=== PATIENT | female | born 1965 ===

== ENCOUNTER 2017-03-11 13:28 | Inpatient (IN) | payer MEDICAID ==
[2017-03-11] MEDS ORDERED: Multivitamin (MVI) 10 ML, Thiamine 100 MG, Folic Acid 1 MG in Sodium Chloride 0.9% 1,00... IV ONE (13:57)
[2017-03-11 14:10] LABS: BASO # 0.1 K/uL (0.0-0.2); BASO % 1.7 % (0.0-2.0); EOS # 0.4 K/uL (0.0-0.7); HEMATOCRIT 42.4 % (34.0-47.0); LYMPH # 3.7 K/uL (1.0-4.3); MEAN CELL VOLUME 87.7 fl (81.0-99.0); MEAN CORPUSCULAR HEMOGLOBIN 30.5 pg (27.0-31.0); MEAN CORPUSCULAR HGB CONC 34.8 g/dL (33.0-37.0); MEAN PLATELET VOLUME 9.8 fl (7.2-11.7); MONO # 0.6 K/uL (0.0-0.8); MONO % 8.2 % (0.0-10.0); NEUT # 2.3 K/uL (1.8-7.0); NEUT % 32.1 % (50.0-75.0); NRBC % 0.2 % (0.0-0.0); RED CELL DISTRIBUTION WIDTH 13.4 % (11.5-14.5)
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
[2017-03-11 14:26] LABS: ALB/GLOB RATIO 1.2 (1.0-2.1); ALCOHOL SERUM 283 mg/dl (0-10); ALKALINE PHOSPHATASE 102 U/L (38-126); ALT/SGPT 79 U/L (9-52); AST/SGOT 162 U/L (14-36); BILIRUBIN,TOTAL 0.4 mg/dl (0.2-1.3); BLOOD UREA NITROGEN 4 mg/dl (7-17); CALCIUM 8.9 mg/dL (8.4-10.2); CARBON DIOXIDE 22 mmol/L (22-30); CHLORIDE 103 mmol/L (98-107); GFR AFRICAN-AMERICAN > 60; GLUCOSE,RANDOM 119 mg/dL (65-105); POTASSIUM 4.4 MMOL/L (3.6-5.0); SODIUM 140 mmol/l (132-148); TOTAL PROTEIN 8.7 G/DL (6.3-8.2)
[2017-03-11] MEDS ORDERED: Sodium Chloride 0.9% 1,000 ML IV STA (14:28)
[2017-03-11 14:59] LABS: URINE BACTERIA OCC (<OCC); URINE BILIRUBIN NEGATIVE (NEGATIVE); URINE BLOOD SMALL (NEGATIVE); URINE COLOR YELLOW (YELLOW); URINE GLUCOSE (UA) NEG (Normal); URINE KETONE NEGATIVE (NEGATIVE); URINE LEUKOCYTE ESTERASE TRACE Leu/uL (Negative); URINE PROTEIN 100 mg/dL (NEGATIVE); URINE UROBILINOGEN 0.2-1.0 mg/dL (0.2-1.0); WBC URINE 5 /hpf (0-5)
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
--- NOTE | 2017-03-11 15:12 | RAD ---
HISTORY: Fall. Technique: Single view portable semi erect @ 14:44 COMPARISON: No prior. FINDINGS: LUNGS: No active pulmonary disease. PLEURA: No significant pleural effusion identified, no pneumothorax apparent. CARDIOVASCULAR: No radiographic findings to suggest acute or significant cardiovascular disease. OSSEOUS STRUCTURES: No significant abnormalities. VISUALIZED UPPER ABDOMEN: Normal. OTHER FINDINGS: None. IMPRESSION: No active disease. Please note: No preliminary report/ innterpretation of this examination provided by emergency department personnel.
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
[2017-03-11] MEDS ORDERED: cefTRIAXone IV 1 gm in Dextros 50 ML IVPB STA (18:16)
[2017-03-11] MEDS ORDERED: cefTRIAXone IV 1 gm in Dextros 50 ML IVPB ONE (18:41)
[2017-03-11 18:42] LABS: VENOUS BLOOD GAS BASE EXCESS 0.7 mmol/L (0.0-2.0); VENOUS BLOOD GAS PCO2 40 mmHg (40-60); VENOUS BLOOD PH 7.41 (7.32-7.43)
[2017-03-12] MEDS: guaiFENesin DM 200 mg-20 mg/10 ml UD PO PRN (00:40)
[2017-03-12 07:19] LABS: ALB/GLOB RATIO 1.2 (1.0-2.1); ALKALINE PHOSPHATASE 81 U/L (38-126); ALT/SGPT 62 U/L (9-52); AST/SGOT 111 U/L (14-36); BILIRUBIN,TOTAL 0.7 mg/dl (0.2-1.3); BLOOD UREA NITROGEN 4 mg/dl (7-17); CALCIUM 8.1 mg/dL (8.4-10.2); CARBON DIOXIDE 27 mmol/L (22-30); CHLORIDE 103 mmol/L (98-107); CHOLESTEROL 240 mg/dL (0-199); GFR AFRICAN-AMERICAN > 60; GLUCOSE,RANDOM 85 mg/dL (65-105); HEMATOCRIT 36.8 % (34.0-47.0); MEAN CELL VOLUME 88.1 fl (81.0-99.0); MEAN CORPUSCULAR HEMOGLOBIN 30.9 pg (27.0-31.0); POTASSIUM 3.5 MMOL/L (3.6-5.0); RED CELL DISTRIBUTION WIDTH 13.5 % (11.5-14.5); SODIUM 138 mmol/l (132-148); TOTAL PROTEIN 7.1 G/DL (6.3-8.2); WHITE BLOOD COUNT 6.1 K/uL (4.8-10.8)
[2017-03-12 07:38] LABS: T4 5.97 ug/dl (5.5-11.0)
[2017-03-12 07:49] LABS: THYROID STIMULATING HORMONE 1.61 mIU/ML (0.46-4.68)
[2017-03-12] MEDS ORDERED: Enoxaparin 40 mg Syringe SC SCH (09:00)
--- NOTE | 2017-03-12 11:55 | CARD ---
APPROVED REPORT EKG Measurement Heart [id number] <Conclusion> Normal sinus rhythm Normal ECG
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
[2017-03-13 10:34] LABS: HEMATOCRIT 40.6 % (34.0-47.0); MEAN CELL VOLUME 88.6 fl (81.0-99.0); MEAN CORPUSCULAR HEMOGLOBIN 30.8 pg (27.0-31.0); MEAN CORPUSCULAR HGB CONC 34.7 g/dL (33.0-37.0); RED CELL DISTRIBUTION WIDTH 13.4 % (11.5-14.5)
[2017-03-13 10:50] LABS: ALKALINE PHOSPHATASE 92 U/L (38-126); ALT/SGPT 59 U/L (9-52); AST/SGOT 116 U/L (14-36); BILIRUBIN,TOTAL 1.1 mg/dl (0.2-1.3); BLOOD UREA NITROGEN 3 mg/dl (7-17); CARBON DIOXIDE 19 mmol/L (22-30); CHLORIDE 108 mmol/L (98-107); GFR AFRICAN-AMERICAN > 60; GLUCOSE,RANDOM 100 mg/dL (65-105); SODIUM 139 mmol/l (132-148); TOTAL PROTEIN 8.4 G/DL (6.3-8.2)
[2017-03-13] MEDS: guaiFENesin DM 200 mg-20 mg/10 ml UD PO PRN (11:02)
--- NOTE | 2017-03-13 15:41 | PN ---
DATE: 03/13/2017 SUBJECTIVE: The patient seen and examined. Interim events noted. Patient remains in Progressive Care Unit on telemetry monitoring. Remains confused, disoriented, agitated. Wanted to smoke. No chest pain or shortness of breath, although patient is not a historian at this time. Agitation is reported per nursing staff, on one-to-one observation. PHYSICAL EXAMINATION: GENERAL: The patient is in no acute distress. VITAL SIGNS: Stable. HEART: S1 and S2, normal and regular. LUNGS: Good bilateral air exchange. ABDOMEN: Soft and nontender. EXTREMITIES: No calf swelling. No tenderness. No acute ischemia. CENTRAL NERVOUS SYSTEM: Essentially unchanged. There is no sign of any acute gross focal motor or sensory neurological deficit, although the patient remains very confused and seems to be all symptoms. DIAGNOSTIC DATA: Available diagnostic data reviewed. Telemetry monitoring does not reveal significant arrhythmias. ASSESSMENT AND PLAN: Overall, the patient's general medical condition is hemodynamically stable . Plan as ordered. Antwon Colon MD
[2017-03-14 06:21] LABS: HEMATOCRIT 40.8 % (34.0-47.0); MEAN CORPUSCULAR HEMOGLOBIN 30.7 pg (27.0-31.0); MEAN CORPUSCULAR HGB CONC 34.5 g/dL (33.0-37.0); RED CELL DISTRIBUTION WIDTH 13.4 % (11.5-14.5); WHITE BLOOD COUNT 8.4 K/uL (4.8-10.8)
[2017-03-14 06:30] LABS: ALB/GLOB RATIO 1.2 (1.0-2.1); ALKALINE PHOSPHATASE 118 U/L (38-126); ALT/SGPT 62 U/L (9-52); AST/SGOT 90 U/L (14-36); BLOOD UREA NITROGEN 6 mg/dl (7-17); CALCIUM 9.4 mg/dL (8.4-10.2); CARBON DIOXIDE 22 mmol/L (22-30); CHLORIDE 107 mmol/L (98-107); GFR AFRICAN-AMERICAN > 60; GLUCOSE,RANDOM 142 mg/dL (65-105); POTASSIUM 3.6 MMOL/L (3.6-5.0); SODIUM 141 mmol/l (132-148); TOTAL PROTEIN 8.5 G/DL (6.3-8.2)
--- NOTE | 2017-03-14 08:52 | PN ---
DATE: 03/14/2017 SUBJECTIVE: The patient is seen and examined. Interim events noted. Consults noted and appreciated. The patient remains confused, disoriented, requiring one-to-one observation. PHYSICAL EXAMINATION: GENERAL: The patient is in no acute distress. VITAL SIGNS: Stable. HEART: S1 and S2, normal and regular. LUNGS: Good bilateral air exchange. ABDOMEN: Soft, nontender. EXTREMITIES: No edema. No calf swelling. No tenderness. No acute ischemia. CENTRAL NERVOUS SYSTEM: Essentially unchanged. DIAGNOSTIC DATA: Available diagnostic data reviewed. Telemetry monitoring does not reveal significant arrhythmias. ASSESSMENT AND PLAN: Overall, the patient is feeling withdrawn, remains confused, disoriented. Plan as ordered. Antwon Colon MD
--- NOTE | 2017-03-14 12:26 | CP.PCM.CON ---
History of Present Illness - History of Present Illness History of Present Illness: Psychiatry Consult Customer Relationship Specialist attempted to meet with patient but she was lethargic and unable to engage in interview. Will attempt to evaluate the patient when she is more alert. Past Patient History - Past Medical History & Family History Past Medical History?: Yes - Past Social History Smoking Status: Current Some Days Smoker - CARDIAC Hx Cardiac Disorders: Yes Hx Hypertension: Yes - PULMONARY Hx Respiratory Disorders: No - NEUROLOGICAL Hx Neurological Disorder: No - HEENT Hx HEENT Problems: No - RENAL Hx Chronic Kidney Disease: No - ENDOCRINE/METABOLIC Hx Endocrine Disorders: No - HEMATOLOGICAL/ONCOLOGICAL Hx Blood Disorders: No Hx AIDS: No Hx Human Immunodeficiency Virus (HIV): No - INTEGUMENTARY Hx Dermatological Problems: No - MUSCULOSKELETAL/RHEUMATOLOGICAL Hx Musculoskeletal Disorders: No Hx Falls: No - GASTROINTESTINAL Hx Gastrointestinal Disorders: No - GENITOURINARY/GYNECOLOGICAL Hx Genitourinary Disorders: No - PSYCHIATRIC Hx Psychophysiologic Disorder: Yes Hx Substance Use: Yes (Alcohol) - SURGICAL HISTORY Hx Surgeries: No - ANESTHESIA Hx Anesthesia: No Hx Anesthesia Reactions: No Hx Malignant Hyperthermia: No Meds Allergies/Adverse Reactions: Allergies Allergy/AdvReac Type Severity Reaction Status Date / Time Unobtainable Allergy Verified 03/11/17 13:33 - Medications Medications: Current Medications Chlordiazepoxide (Librium) 25 mg PO Q6 [facility] Guaifenesin/Dextromethorphan (Robitussin Dm) 10 ml PO Q6 PRN PRN Reason: Cough Last Admin: 03/13/17 11:02 Dose: 10 ml Lorazepam (Ativan) 1 mg IVP Q3 PRN PRN Reason: Agitation Last Admin: 03/14/17 10:40 Dose: 1 mg Losartan Potassium (Cozaar) 25 mg PO DAILY [facility] Last Admin: 03/14/17 10:40 Dose: 25 mg Nicotine (Nicoderm Cq) 1 patch TD DAILY [facility] Last Admin: 03/14/17 10:41 Dose: 1 patch Results - Vital Signs Recent Vital Signs: Last Vital Signs Temp 97.6 F 03/14/17 08:44 Pulse 81 03/14/17 10:40 Resp 16 03/14/17 08:44 BP 122/80 03/14/17 10:40 Pulse Ox 99 03/14/17 08:44 - Labs Result Diagrams: 03/14/17 06:00 03/14/17 06:00 Labs: Laboratory Results - last 24 hr 03/14/17 03/14/17 06:00 06:00 WBC 8.4 RBC 4.58 Hgb 14.1 Hct 40.8 MCV 89.0 MCH 30.7 MCHC 34.5 RDW 13.4 Plt Count 45 L Sodium 141 Potassium 3.6 Chloride 107 Carbon Dioxide 22 Anion Gap 16 BUN 6 L Creatinine 0.5 L Est GFR ( Amer) > 60 Est GFR (Non-Af Amer) > 60 Random Glucose 142 H Calcium 9.4 Total Bilirubin 1.0 AST 90 H D ALT 62 H Alkaline Phosphatase 118 Total Protein 8.5 H Albumin 4.7 Globulin 3.8 Albumin/Globulin Ratio 1.2
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
[2017-03-15 08:32] LABS: ALB/GLOB RATIO 1.2 (1.0-2.1); ALKALINE PHOSPHATASE 96 U/L (38-126); ALT/SGPT 69 U/L (9-52); AST/SGOT 89 U/L (14-36); BILIRUBIN,TOTAL 0.8 mg/dl (0.2-1.3); BLOOD UREA NITROGEN 7 mg/dl (7-17); CALCIUM 9.4 mg/dL (8.4-10.2); CARBON DIOXIDE 25 mmol/L (22-30); CHLORIDE 106 mmol/L (98-107); GFR AFRICAN-AMERICAN > 60; GLUCOSE,RANDOM 98 mg/dL (65-105); POTASSIUM 3.5 MMOL/L (3.6-5.0); SODIUM 138 mmol/l (132-148); TOTAL PROTEIN 7.7 G/DL (6.3-8.2)
[2017-03-15] MEDS ORDERED: Potassium Chloride 20 mEq ER Tab PO ONE (08:55)
[2017-03-15] MEDS: Petrolatum UD PAK TOP SCH ×4 (09:08→21:17)
[2017-03-15] MEDS: guaiFENesin DM 200 mg-20 mg/10 ml UD PO PRN (09:56)
[2017-03-15 10:25] LABS: HEMATOCRIT 39.7 % (34.0-47.0); MEAN CORPUSCULAR HEMOGLOBIN 30.8 pg (27.0-31.0); MEAN CORPUSCULAR HGB CONC 35.8 g/dL (33.0-37.0); RED CELL DISTRIBUTION WIDTH 13.3 % (11.5-14.5); WHITE BLOOD COUNT 6.1 K/uL (4.8-10.8)
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
--- NOTE | 2017-03-15 12:19 | CP.PCM.PN ---
Subjective - Date & Time of Evaluation Date of Evaluation: 03/15/17 Time of Evaluation: 12:18 - Subjective Subjective: Pt's platelet count has gone up to 65K with abstinence from alcohol. Will sign off te case. Objective - Vital Signs/Intake and Output Vital Signs (last 24 hours): Temp Pulse Resp BP Pulse Ox 97.5 F L 107 H 18 102/63 100 03/15/17 12:00 03/15/17 12:00 03/15/17 12:00 03/15/17 12:00 03/15/17 12:00 Intake and Output: 03/15/17 03/15/17 06:59 18:59 Intake Total 1000 Balance 1000 - Medications Medications: Current Medications Chlordiazepoxide (Librium) 25 mg PO Q6 [facility] Last Admin: 03/15/17 09:55 Dose: 25 mg Emollient Ointment (Vaseline Oint) 1 pkt TOP QID [facility] Folic Acid (Folic Acid) 1 mg PO DAILY [facility] Last Admin: 03/15/17 09:55 Dose: 1 mg Guaifenesin/Dextromethorphan (Robitussin Dm) 10 ml PO Q6 PRN PRN Reason: Cough Last Admin: 03/15/17 09:56 Dose: 10 ml Lorazepam (Ativan) 1 mg IVP Q3 PRN PRN Reason: Agitation Last Admin: 03/15/17 11:05 Dose: 1 mg Losartan Potassium (Cozaar) 25 mg PO DAILY [facility] Last Admin: 03/15/17 09:54 Dose: 25 mg Nicotine (Nicoderm Cq) 1 patch TD DAILY [facility] Last Admin: 03/15/17 09:56 Dose: 1 patch Thiamine HCl (Vitamin B1 Tab) 100 mg PO DAILY [facility] Last Admin: 03/15/17 09:55 Dose: 100 mg - Labs Labs: 03/15/17 09:30 03/15/17 07:50
[2017-03-16] MEDS: Petrolatum UD PAK TOP SCH ×4 (09:32→22:27)
[2017-03-16] MEDS: guaiFENesin DM 200 mg-20 mg/10 ml UD PO PRN (09:34)
--- NOTE | 2017-03-16 11:07 | PN ---
DATE: 03/15/2017 SUBJECTIVE: The patient is seen and examined. Interim events noted. The patient looks little better. , but still very jittery and unsteady. No chest pain. No shortness of breath. PHYSICAL EXAMINATION: GENERAL: The patient is in no acute distress. VITAL SIGNS: Stable. HEART: S1 and S2, normal and regular. LUNGS: Good bilateral air exchange. ABDOMEN: Soft and nontender. No organomegaly. No fluid. Bowel sounds are present. EXTREMITIES: No edema. No calf swelling. No tenderness. No acute ischemia. CENTRAL NERVOUS SYSTEM: Essentially unchanged. DIAGNOSTIC DATA: Available diagnostic data reviewed. Telemetry monitoring does not reveal significant arrhythmia. ASSESSMENT AND PLAN: Overall, the patient's general medical condition is stable. Plan as ordered. Antwon Colon MD
--- NOTE | 2017-03-16 12:16 | PN ---
DATE: 03/16/2017 SUBJECTIVE: Patient seen and examined. Interim events noted. Consults noted and appreciated. Psychiatric followup and interventions noted and appreciated. Patient feels better. He complains of pains in joints, mainly to right wrist, but no chest pain, no shortness of breath. PHYSICAL EXAMINATION: GENERAL: Patient is in no acute distress. VITAL SIGNS: Stable. Patient is still very jittery. HEART: S1 and S2, normal and regular. LUNGS: Good bilateral air entry. ABDOMEN: Soft and nontender. EXTREMITIES: No edema. No calf swelling. No tenderness. No acute ischemia. CENTRAL NERVOUS SYSTEM: Essentially unchanged. DIAGNOSTIC DATA: Available diagnostic data reviewed. Telemetry monitoring does not reveal significant arrhythmias. Patient is still very jittery and having withdrawal, also remains on one-to-one observation. ASSESSMENT AND PLAN: Overall clinically, the patient seems to have improved. Plan as ordered. Antwon Colon MD [facility]
[2017-03-17 05:46] VITALS: RESP 18
[2017-03-17] MEDS: Petrolatum UD PAK TOP SCH ×2 (09:17→17:23)
[2017-03-17 12:22] VITALS: O2SAT 99
--- NOTE | 2017-03-17 13:43 | PN ---
DATE: 03/17/2017 SUBJECTIVE: Patient seen and examined. Interim events noted. Patient remains in Progressive Care Unit with one-to-one observation and monitoring. Patient is not able to provide informative history or review of systems. Denies any specific complaints. No chest pain. No shortness of breath. PHYSICAL EXAMINATION: GENERAL: Patient is in no acute distress. VITAL SIGNS: . HEART: S1 and S2, normal and regular. LUNGS: Good bilateral air exchange. ABDOMEN: Soft, nontender. EXTREMITIES: No edema. No calf swelling. No tenderness. No acute ischemia. CENTRAL NERVOUS SYSTEM: Essentially unchanged. DIAGNOSTIC DATA: Available diagnostic data reviewed. Telemetry monitoring does not reveal significant arrhythmias. ASSESSMENT AND PLAN: Overall, patient is hemodynamically stable, although still not 100% mentally. Plan as ordered. Antwon Colon MD
[2017-03-17 15:46] VITALS: BP 92/65; PULSE 86; TEMP 97.7
== END 2017-03-17 18:00 | disposition home or self-care (01) | DRG 750 ==
LOC: H.ER 13:28 → OBSVTOIN 19:06 → H.ERHOLD 19:06 → H.TEL 20:38
PROVIDERS: ADMIT Internal Medicine; ATTEND Internal Medicine
DX: F10.231 Alcohol dependence with withdrawal delirium (principal); K70.30 Alcoholic cirrhosis of liver without ascites; D69.59 Other secondary thrombocytopenia; N39.0 Urinary tract infection, site not specified; I10 Essential (primary) hypertension; F10.229 Alcohol dependence with intoxication, unspecified; D73.1 Hypersplenism; Y90.8 Blood alcohol level of 240 mg/100 ml or more; K52.9 Noninfective gastroenteritis and colitis, unspecified; F17.210 Nicotine dependence, cigarettes, uncomplicated

== ENCOUNTER 2017-12-11 01:33 | Emergency (ER) | payer MEDICAID ==
[2017-12-11 01:43] VITALS: BMI 22.4
[2017-12-11] MEDS ORDERED: Multivitamin (MVI) 10 ML, Thiamine 100 MG, Folic Acid 1 MG in Dextrose 5%/0.45% NS 1,00... IV ONE (03:15)
[2017-12-11 03:42] LABS: BASO # 0.1 K/uL (0.0-0.2); BASO % 0.8 % (0.0-2.0); EOS # 0.4 K/uL (0.0-0.7); HEMOGLOBIN 14.1 g/dL (12.0-16.0); LYMPH # 3.8 K/uL (1.0-4.3); LYMPH % 42.9 % (20.0-40.0); MEAN CELL VOLUME 86.6 fl (81.0-99.0); MEAN CORPUSCULAR HEMOGLOBIN 31.2 pg (27.0-31.0); MEAN PLATELET VOLUME 9.5 fl (7.2-11.7); MONO # 0.7 K/uL (0.0-0.8); NEUT # 3.9 K/uL (1.8-7.0); NEUT % 44.3 % (50.0-75.0); NRBC % 0.2 % (0.0-0.0); RBC 4.52 Mil/uL (3.80-5.20); RED CELL DISTRIBUTION WIDTH 14.1 % (11.5-14.5); WHITE BLOOD COUNT 8.9 K/uL (4.8-10.8)
[2017-12-11 03:55] LABS: ALB/GLOB RATIO 1.2 (1.0-2.1); ALBUMIN 4.4 g/dL (3.5-5.0); ALT/SGPT 63 U/L (9-52); AST/SGOT 123 U/L (14-36); BLOOD UREA NITROGEN 2 mg/dl (7-17); CALCIUM 8.9 mg/dL (8.4-10.2); GFR AFRICAN-AMERICAN > 60; GFR NON-AFRICAN AMERICAN > 60; LIPASE 321 U/L (23-300)
[2017-12-11 04:51] LABS: URINE BILIRUBIN NEGATIVE (NEGATIVE); URINE BLOOD NEGATIVE (NEGATIVE); URINE CLARITY CLEAR (Clear); URINE COLOR COLORLESS (YELLOW); URINE GLUCOSE (UA) 150 mg/dL (Normal); URINE LEUKOCYTE ESTERASE NEG Leu/uL (Negative); URINE PROTEIN NEGATIVE (NEGATIVE); URINE UROBILINOGEN 0.2-1.0 mg/dL (0.2-1.0)
[2017-12-11 05:30] LABS: BARBITURATES, UR NEGATIVE (NEGATIVE); BENZODIAZEPINES, UR NEGATIVE (NEGATIVE); OPIATES, UR NEGATIVE (NEGATIVE); PHENCYCLIDINE, UR NEGATIVE (NEGATIVE)
[2017-12-11 05:55] VITALS: RESP 16
--- NOTE | 2017-12-11 05:59 | ED PDOC ---
HPI: Psych/Substance Abuse Time Seen by Provider: 12/11/17 02:31 Chief Complaint (Nursing): Alcohol Ingestion Chief Complaint (Provider): Alcohol Ingestion History Per: Patient History/Exam Limitations: no limitations Onset/Duration Of Symptoms: Days Current Symptoms Are (Timing): Still Present Modifying Factor(s): Alcohol Additional Complaint(s): 52 y/o male presents to the ED for alcohol intoxication. Patient states that for a period of time from January 2017 onto November 23 she has been sober. Then since November 23 she has been drinking daily. Patient states she has been drinking every day and not eating as much. Son found her earlier today. Patient reports her last drink was at 11 PM last night. Patient is also complaining of epigastric discomfort and nausea. Otherwise: (-) other complaints, (-) depressed , (-) suicidal ideation, (-) chest pain, (-) vomiting, (-) back pain, (-) homicidal ideation. Past Medical History Reviewed: Historical Data, Nursing Documentation, Vital Signs Vital Signs: Last Vital Signs Temp 97 F L 12/11/17 01:44 Pulse 105 H 12/11/17 01:44 Resp 18 12/11/17 01:44 BP 144/93 H 12/11/17 01:44 Pulse Ox 100 12/11/17 01:44 - Medical History PMH: HTN Denies: Diabetes, Hepatitis, HIV, Chronic Kidney Disease, Seizures, Sexually Transmitted Disease - Surgical History Surgical History: Cholecystectomy, (x 1) - Family History Family History: States: Unknown Family Hx - Immunization History Hx Tetanus Toxoid Vaccination: No Hx Influenza Vaccination: No Hx Pneumococcal Vaccination: No - Home Medications Home Medications: Ambulatory Orders Medication Instructions Recorded Acetaminophen with Codeine 1 tab PO Q6 PRN #10 tab 01/03/14 [Tylenol with Codeine No. 3 300 mg-30 mg] Oxycodone HCl/Acetaminophen 1 tab PO Q6H PRN #15 tab 04/27/15 [Percocet 325 mg-5 mg] Clindamycin [Cleocin] 300 mg PO TID #21 cap 09/03/15 oxyCODONE/Acetaminophen [Percocet 1 ea PO Q6H PRN #10 tab 09/03/15 5/325 mg Tab] Ibuprofen [Motrin] 600 mg PO Q8 PRN #21 tab 10/18/16 Losartan [Cozaar] 25 mg PO DAILY 03/11/17 Folic Acid 1 mg PO DAILY #30 tab 03/17/17 Thiamine [Vitamin B1 Tab] 100 mg PO DAILY #30 tab 03/17/17 chlordiazePOXIDE [Librium] 25 mg PO Q8 2 Days #15 cap 03/17/17 Famotidine [Pepcid] 40 mg PO DAILY #20 tablet 12/11/17 Ondansetron ODT [Zofran ODT] 4 mg PO DAILY PRN #20 odt 12/11/17 - Allergies Allergies/Adverse Reactions: Allergies Allergy/AdvReac Type Severity Reaction Status Date / Time Unobtainable Allergy Verified 03/11/17 13:33 Review of Systems ROS Statement: Except As Marked, All Systems Reviewed And Found Negative Psych: Positive for: Other (EtOH intoxication) Physical Exam - Reviewed Nursing Documentation Reviewed: Yes Vital Signs Reviewed: Yes - Physical Exam Neurologic/Psych: Positive for: Alert Comments: GENERAL APPEARANCE: Patient is awake, alert, oriented x 3, in no acute distress. SKIN: Warm, dry; (-) cyanosis HEAD: (-) scalp swelling, (-) scalp tenderness. EYES: (-) conjunctival pallor, (-) scleral icterus, (-) nystagmus, (+) dry mucus membranes. ENMT: Mucous membranes moist. Airway patent: (-) stridor. NECK: (-) tenderness, (-) stiffness, (-) lymphadenopathy. HEART AND CARDIOVASCULAR: (-) irregularity; (-) murmur, (-) gallop. CHEST AND RESPIRATORY: (-) rales, (-) rhonchi, (-) wheezes; breath sounds equal. ABDOMEN: Soft, (-) distention, (+) mild epigastric tenderness, (-) guarding. NEURO AND PSYCH: Mental status as above. Affect: normal. job coach/job developer: Intact. Pupils equal and reactive; EOMI; (-) facial asymmetry; tongue and uvula midline. Strength symmetric. Gait steady. - Laboratory Results Result Diagrams: 12/11/17 03:35 12/11/17 03:35 - ECG O2 Sat by Pulse Oximetry: 100 (RA) Pulse Ox Interpretation: Normal Medical Decision Making Medical Decision Making: Plan : - Labs - IV - Pepcid IV - Zofran IV - Banana bag IV - UDS - UA Labs reviewed : Alcohol 275, rest of the labs wnl. On re-evaluation, patient reports improvement of symptoms, denies any abdominal pain or nausea. On exam, patient remains AAOx3, in no acute distress. Lungs clear to auscultation, cardiac RRR, abdomen soft, non-tender, repeat neuro exam shows no focal findings, speaking in full sentences, no slurred speech, no tremors, ambulating with a steady gait. Diagnostic results d/w the patient in great detail. Based on history, exam and diagnostic results, plan will be for outpatient follow up. Patient instructed to follow-up with pmd or referral provided in 1-2 days without fail. Return to the emergency room at any time for any new or worsening symptoms. Patient states she fully agrees with and understands discharge instructions. States that she agrees with the plan and disposition. Verbalized and repeated discharge instructions and plan. I have given the patient opportunity to ask any additional questions. Scribe Attestation: Documented by Shakeel Yates acting as a scribe for Sweta Arguelles PA-C. Provider Scribe Attestation: All medical record entries made by the Scribe were at my direction and personally dictated by me. I have reviewed the chart and agree that the record accurately reflects my personal performance of the history, physical exam, medical decision making, and the department course for this patient. I have also personally directed, reviewed, and agree with the discharge instructions and disposition. Disposition - Clinical Impression Clinical Impression: Alcohol abuse with intoxication, Alcoholic gastritis - Patient ED Disposition Is Patient to be Admitted: No Counseled Patient/Family Regarding: Studies Performed, Diagnosis, Need For Followup, Rx Given - Disposition Referrals: [facility] [Outside] Houston Emerson MD [Staff Provider] - Disposition: Routine/Home Disposition Time: 06:00 Condition: STABLE Additional Instructions: Thank you for letting us take care of you today. You were treated for alcohol intoxication/abuse. The emergency medical care you received today was directed towards the acute presenting symptoms. If you were prescribed any medication, please fill it and give as directed. It may take several days for your symptoms to resolve. Return to the Emergency Department at any time if symptoms worsen, do not improve, or if any other problems arise. Please contact your doctor in 2 days for re-evaluation and follow up / or call one of the physicians/clinics you have been referred to that are listed on the Patient Visit Information form that is included in your discharge packet. Bring any paperwork you were given at discharge with you along with any medications to your follow up visit. Our treatment cannot replace ongoing medical care by a primary care provider (PCP) outside of the emergency department. Thank you for allowing the [facility] team to be part of your care today. Prescriptions: Famotidine [Pepcid] 40 mg PO DAILY #20 tablet Ondansetron ODT [Zofran ODT] 4 mg PO DAILY PRN #20 odt PRN Reason: Nausea/Vomiting Instructions: Gastritis (DC), Alcohol Abuse and Alcoholism (DC) Forms: [employer] (Nepali) Print Language: MOROCC[place] - PA / SPECIALIST FIELD ENGINEER / Resident Statement MD/DO has reviewed & agrees with the documentation as recorded.
[2017-12-11 12:33] VITALS: BP 110/60; PULSE 88; TEMP 97.8
[2017-12-12 00:57] VITALS: O2SAT 100
== END 2017-12-11 12:31 | disposition home or self-care (01) ==
LOC: H.ER 01:33
DX: F10.129 Alcohol abuse with intoxication, unspecified (principal); K29.20 Alcoholic gastritis without bleeding; I10 Essential (primary) hypertension
CPT/HCPCS: 80053; 80320; 80324; 80345; 80346; 80349; 80353; 80358; 80361; 81003; 83690; 83992; 85025; 96365; 96366; 96375; 99283; J2405; J3411; J7042

== ENCOUNTER 2018-02-14 07:56 | Emergency (ER) | payer MEDICAID ==
[2018-02-14 07:56] VITALS: BMI 22.4
[2018-02-14 08:03] VITALS: PULSE 82; TEMP 98.2; O2SAT 100
[2018-02-14 08:19] VITALS: BP 108/71; RESP 16
[2018-02-14] MEDS ORDERED: Sodium Chloride 0.9% 1,000 ML IV STA (08:20)
[2018-02-14 09:04] LABS: BASO # 0.1 K/uL (0.0-0.2); BASO % 1.3 % (0.0-2.0); EOS # 0.5 K/uL (0.0-0.7); EOS % 4.8 % (0.0-4.0); HEMOGLOBIN 14.3 g/dL (12.0-16.0); LYMPH # 3.5 K/uL (1.0-4.3); LYMPH % 34.4 % (20.0-40.0); MEAN CELL VOLUME 89.2 fl (81.0-99.0); MEAN CORPUSCULAR HEMOGLOBIN 31.8 pg (27.0-31.0); MEAN CORPUSCULAR HGB CONC 35.7 g/dL (33.0-37.0); MEAN PLATELET VOLUME 11.2 fl (7.2-11.7); MONO # 0.8 K/uL (0.0-0.8); MONO % 7.5 % (0.0-10.0); NEUT # 5.3 K/uL (1.8-7.0); NRBC % 0.1 % (0.0-0.0); RBC 4.5 Mil/uL (3.80-5.20); RED CELL DISTRIBUTION WIDTH 13.2 % (11.5-14.5); WHITE BLOOD COUNT 10.3 K/uL (4.8-10.8)
[2018-02-14 09:07] LABS: ALB/GLOB RATIO 1.1 (1.0-2.1); ALBUMIN 4.1 g/dL (3.5-5.0); BLOOD UREA NITROGEN 13 mg/dl (7-17); CALCIUM 9.3 mg/dL (8.4-10.2); GFR NON-AFRICAN AMERICAN > 60
[2018-02-14 09:08] LABS: ALT/SGPT 14 U/L (9-52); AST/SGOT 38 U/L (14-36)
[2018-02-14] MEDS ORDERED: Sodium Chloride 0.9% 100 ML ONE (13:03)
[2018-02-14] MEDS ORDERED: Iodixanol 320 MG/ML 100 ML BOTTLE IV ONE (13:03)
--- NOTE | 2018-02-14 14:07 | CT ---
Date of service: 02/14/2018 PROCEDURE: CT HEAD WITHOUT CONTRAST. HISTORY: Evaluate for intracranial hemorrhage COMPARISON: CT head dated 03/11/2017 TECHNIQUE: Axial computed tomography images were obtained through the head/brain without intravenous contrast. Radiation dose: Total exam DLP = 703.0 mGy-cm. This CT exam was performed using one or more of the following dose reduction techniques: Automated exposure control, adjustment of the mA and/or kV according to patient size, and/or use of iterative reconstruction technique. FINDINGS: HEMORRHAGE: No intracranial hemorrhage. BRAIN: No mass effect or edema. Mild atrophy. Mild chronic microvascular ischemic changes. VENTRICLES: Mildly prominent in excess of cerebral atrophy. CALVARIUM: Unremarkable. PARANASAL SINUSES: Bilateral maxillary and ethmoid sinus secretions. MASTOID AIR CELLS: Unremarkable as visualized. No inflammatory changes. OTHER FINDINGS: Stable bilobed peripherally calcified 1.8 x 1.1 cm aneurysm in the left ICA terminus versus proximal M1 segment. IMPRESSION: No acute intracranial pathology. Sinus disease as described above. Mildly prominent ventricles in excess of mild cerebral atrophy which may represent a component of underlying communicating hydrocephalus. Stable peripherally calcified bilobed left ICA terminus versus proximal M1 segment aneurysm.
--- NOTE | 2018-02-14 14:26 | CT ---
PROCEDURE: CTA HEAD AND NECK WITH CONTRAST HISTORY: R/O ANEURYSM COMPARISON: None available. TECHNIQUE: Initial noncontrast head CT was performed. Subsequently, CT angiogram of the head and neck were performed after the intravenous administration of 80 mL of Omnipaque 350. Contiguous 1.5mm thick images were obtained in the axial plane of the neck. 2-D coronal and sagittal MPR images were obtained. Imaging postprocessing was performed with 3-D images also obtained. A delayed contrast head CT was also obtained. This CT exam was performed using one or more of the following dose reduction techniques: Automated exposure control, adjustment of the mA and/or kV according to patient size, and/or use of iterative reconstruction technique. Contrast dose: 99 cc Visipaque 320 Radiation dose: Total exam DLP = 412.24 mGy-cm. FINDINGS: HEAD: Right: The intracranial internal carotid artery, and anterior and middle cerebral arteries are widely patent. Left: The intracranial internal carotid artery, and anterior and middle cerebral arteries are widely patent. There is a 1.6 x 0.6 cm peripherally calcified bilobed aneurysm in the left supraclinoid ICA directed anterolaterally. Posterior circulation: The visualized intracranial vertebral arteries, basilar artery and posterior cerebral arteries are widely patent. There is no endoluminal filling defect to suggest thrombus. NECK: There is a three vessel aortic arch. There is no stenosis at the origins of the great vessels at the level of the aortic arch. Right Carotid: On the right, the common carotid, internal carotid and external carotid arteries are widely patent. There is no hemodynamically significant stenosis in the internal carotid artery by NASCET criteria. Left Carotid: On the left, the common carotid, internal carotid and external carotid arteries are widely patent. There is no hemodynamically significant stenosis in the internal carotid artery by NASCET criteria. The vertebral arteries are widely patent. The right vertebral artery is hypoplastic, an anatomic variant. The visualized soft tissues of the neck are normal. The visualized brain and cervical spine are within normal limits. There are cystic changes in the visualized upper lobes. IMPRESSION: 1. 1.6 x 0.6 cm bilobed saccular aneurysm in the left supraclinoid IC directed anterior or laterally. 2. No evidence of endoluminal thrombus,occlusion or definite significant stenosis in the intracranial arteries. 3. No evidence of hemodynamically significant stenosis in the internal carotid arteries. 4. Patent bilateral vertebral arteries.
--- NOTE | 2018-02-14 15:09 | ED PDOC ---
HPI: Headache Time Seen by Provider: 02/14/18 08:19 Chief Complaint (Nursing): Headache Chief Complaint (Provider): headache nausea History Per: Patient, Transition Coach (Barber from [facility]) Current Symptoms Are (Timing): Still Present Severity: Mild Quality: Dull Associated Symptoms: Nausea. denies: Photophobia, Blurred Vision, Vomiting, Extremity Weakness Additional History Per: Prior Records Past Medical History Reviewed: Historical Data, Nursing Documentation, Vital Signs Vital Signs: Last Vital Signs Temp 98.2 F 02/14/18 08:05 Pulse 82 02/14/18 08:05 Resp 16 02/14/18 08:05 BP 108/71 02/14/18 08:05 Pulse Ox 100 02/14/18 08:05 - Medical History PMH: HTN Denies: Diabetes, Hepatitis, HIV, Chronic Kidney Disease, Seizures, Sexually Transmitted Disease Other PMH: prior etoh abuse, currently does not drink - Surgical History Surgical History: Cholecystectomy, (x 1) - Family History Family History: States: Unknown Family Hx - Social History Current smoker - smoking cessation education provided: No Alcohol: None - Immunization History Hx Tetanus Toxoid Vaccination: No Hx Influenza Vaccination: No Hx Pneumococcal Vaccination: No - Home Medications Home Medications: Ambulatory Orders Medication Instructions Recorded Acetaminophen with Codeine 1 tab PO Q6 PRN #10 tab 01/03/14 [Tylenol with Codeine No. 3 300 mg-30 mg] Oxycodone HCl/Acetaminophen 1 tab PO Q6H PRN #15 tab 04/27/15 [Percocet 325 mg-5 mg] Clindamycin [Cleocin] 300 mg PO TID #21 cap 09/03/15 oxyCODONE/Acetaminophen [Percocet 1 ea PO Q6H PRN #10 tab 09/03/15 5/325 mg Tab] Ibuprofen [Motrin] 600 mg PO Q8 PRN #21 tab 10/18/16 Losartan [Cozaar] 25 mg PO DAILY 03/11/17 Folic Acid 1 mg PO DAILY #30 tab 03/17/17 Thiamine [Vitamin B1 Tab] 100 mg PO DAILY #30 tab 03/17/17 chlordiazePOXIDE [Librium] 25 mg PO Q8 2 Days #15 cap 03/17/17 Famotidine [Pepcid] 40 mg PO DAILY #20 tablet 12/11/17 Ondansetron ODT [Zofran ODT] 4 mg PO DAILY PRN #20 odt 12/11/17 - Allergies Allergies/Adverse Reactions: Allergies Allergy/AdvReac Type Severity Reaction Status Date / Time Unobtainable Allergy Verified 03/11/17 13:33 Review of Systems Constitutional: Negative for: Fever, Sweats Cardiovascular: Negative for: Chest Pain, Palpitations Respiratory: Negative for: Shortness of Breath Gastrointestinal: Positive for: Nausea. Negative for: Vomiting, Abdominal Pain Genitourinary Female: Negative for: Dysuria Musculoskeletal: Negative for: Neck Pain Neurological: Positive for: Headache. Negative for: Weakness, Numbness, Incoordination, Change in Speech, Confusion, Seizures, Altered Mental Status, Dizziness Psych: Negative for: Depression Physical Exam - Reviewed Nursing Documentation Reviewed: Yes Vital Signs Reviewed: Yes - Physical Exam Appears: Positive for: Well, Non-toxic, No Acute Distress Head Exam: Positive for: ATRAUMATIC, NORMAL INSPECTION, NORMOCEPHALIC Skin: Positive for: Normal Color, Warm, DRY Eye Exam: Positive for: EOMI, Normal appearance, PERRL ENT: Positive for: Normal ENT Inspection Neck: Positive for: Normal, Painless ROM Cardiovascular/Chest: Positive for: Regular Rate, Rhythm Respiratory: Positive for: CNT, Normal Breath Sounds Gastrointestinal/Abdominal: Positive for: Normal Exam, Soft Back: Positive for: Normal Inspection Extremity: Positive for: Normal ROM Neurologic/Psych: Positive for: Alert, Oriented - Laboratory Results Result Diagrams: 02/14/18 08:45 02/14/18 08:45 - ECG O2 Sat by Pulse Oximetry: 100 Medical Decision Making Medical Decision Making: CT brain negative per radiology CTA brain/neck performed d/w Dr Theodore radiology no appreciable change aneurysm since 2013 d/w Dr Schroeder neurology who in turn contacted interventional radiology who Dr Schroeder states will reach out to patient for poss intervention Patient re-eval 245p improved, denies current headache. Explained in qatari via inspector casing Barber from [employer]. Understood diagnosis, instructions, and precautions, risk of bleeding. Disposition - Clinical Impression Clinical Impression: Brain aneurysm - Disposition Referrals: Patient Admitting Clerk Service [Outside] Disposition: Routine/Home Disposition Time: 15:09 Condition: STABLE Additional Instructions: [employer] chemo a un neurocirujano para thompson posible intervencin o ciruga de tu aneurisma cerebral. Vuelva a er para cualquier sntoma nuevo o que empeore. Discuta con calderon PMD, tambin un especialista debe llegar a usted pronto para las pruebas posteriores posibles. You need to see a neurosurgeon for potential intervention or surgery of your brain aneurysm. Return to ER for any new or worsening symptoms. Instructions: Brain Aneurysm (DC), Endovascular Surgery Forms: [facility] ED School/Work Excuse Print Language: [place] K[place]
== END 2018-02-14 15:05 | disposition home or self-care (01) ==
LOC: H.ER 07:56
DX: R51 Headache (principal); Z86.79 Personal history of other diseases of the circulatory system
CPT/HCPCS: 70450; 70496; 70498; 80053; 80320; 83735; 85025; 96374; 99285; J1885; J7030; Q9967